=== PATIENT | female | born 1990 | race Two or more races ===

== ENCOUNTER 2020-03-08 01:03 | Inpatient (IN) | payer OTHER ==
[~2020-03-08] VITALS: Ht 149.9 cm; Wt 60.3 kg
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
--- NOTE | 2020-03-08 02:10 | NUR ---
[facility] LEGAL NURSE AT BEDSIDE DOING LEGAL BLOOD DRAW
--- NOTE | 2020-03-08 02:11 | NUR ---
[employer] AT BEDSIDE
[2020-03-08] MEDS ORDERED: MORPHINE SULFATE INJ 4 MG/ML DISP.SYRIN ONE (02:40)
--- NOTE | 2020-03-08 02:47 | NUR ---
move packet given to admitting.
--- NOTE | 2020-03-08 02:57 | NUR ---
MS. ADI MARIE,
[2020-03-08 02:58] LABS: BASOPHILS # (AUTO) 0.1 /CMM (0.0-0.2); BASOPHILS % (AUTO) 0.6 % (0.0-2.0); EOSINOPHILS % (AUTO) 0.3 % (0.0-6.0); HEMATOCRIT 39 % (33-45); HEMOGLOBIN 13.1 g/dL (11.5-14.8); LYMPHOCYTES # (AUTO) 1.5 /CMM (0.8-4.8); LYMPHOCYTES % (AUTO) 15.6 % (20.0-44.0); MEAN CORPUSCULAR HGB CONC 34 g/dl (31.0-36.0); MEAN CORPUSCULAR VOLUME 91 fL (82-100); MONOCYTES # (AUTO) 0.5 /CMM (0.1-1.30); NEUTROPHILS # (AUTO) 7.8 /CMM (1.8-8.9); NEUTROPHILS % (AUTO) 78.5 % (43.0-81.0); PLATELET COUNT (AUTO) 204 /CMM (150-450); RED BLOOD CELL COUNT(AUTO) 4.28 MIL/uL (4.0-5.2); WHITE BLOOD COUNT (AUTO) 9.9 K/uL (4.3-11.0)
[2020-03-08] MEDS ORDERED: MORPHINE SULFATE INJ 2 MG/ML DISP.SYRIN IV ONE (03:00)
[2020-03-08 03:08] LABS: CALCIUM, SERUM 8.5 mg/dL (8.5-10.1); CREATININE 0.8 mg/dL (0.6-1.3); POTASSIUM 3.6 mmol/L (3.5-5.1)
--- NOTE | 2020-03-08 03:30 | NUR ---
called [facility] for panel admission, dr. pavon paged. waiting for call back
--- NOTE | 2020-03-08 03:38 | NUR ---
called rn sup for bed
--- NOTE | 2020-03-08 03:45 | NUR ---
tech at bedside for splint.
[2020-03-08] MEDS ORDERED: ACETAMINOPHEN 325 MG TABLET PO PRN (04:00)
[2020-03-08] MEDS ORDERED: ONDANSETRON HCL/PF 4 MG/2 ML VIAL IVP PRN (04:00)
[2020-03-08] MEDS ORDERED: Z GUARD REMEDY 2 OZ OINT TP PRN (04:00)
[2020-03-08] MEDS ORDERED: MAGNESIUM HYDROXIDE 30 ML UDC PO PRN (04:00)
[2020-03-08] MEDS ORDERED: MAG HYDROX/AL HYDROX/SIMETH 30 ML UDC PO PRN (04:00)
--- NOTE | 2020-03-08 04:06 | NUR ---
REPORT GIVEN TO [facility]
--- NOTE | 2020-03-08 04:08 | NUR ---
Report given to Rolando chavez.
[2020-03-08 05:00] VITALS: BP 121/74
--- NOTE | 2020-03-08 05:05 | NUR ---
MS/RN OPENING NOTES RECEIVED PATIENT FROM ER. TRANSPORTED VIA GURNEY BY [facility]. PATIENT TRANSFERRED TO BED SAFELY. PATIENT IS ALERT AND ORIENTED X 4. BREATHING IS EVEN AND UNLABORED. NO SIGNS OF RESPIRATORY DISTRESS OR SOB NOTED. PATIENT TOLERATING ROOM AIR WELL. PATIENT V/S ARE WITHIN NORMAL LIMITS. SKIN IS INTACT. PATIENT HAS BELONGING WITH HER AT BEDSIDE. PATIENT HAS IV ACCESS ON LEFT HAND AND RIGHT AC INTACT. SAFETY MEASURES ARE IN PLACE, BED LOCKED AND PLACED IN THE LOW POSITION, CALL LIGHT WITH IN REACH. WILL CONTINUE TO MONITOR.
[2020-03-08 05:47] VITALS: BP 121/74
--- NOTE | 2020-03-08 06:50 | NUR ---
MS/RN CLOSING NOTES PATIENT SLEEPING IN BED EASY TO WAKE. PATIENT IS ALERT AND ORIENTED X 4. BREATHING IS EVEN AND UNLABORED. NO SIGNS OF RESPIRATORY DISTRESS OR SOB NOTED. PATIENT TOLERATING ROOM AIR WELL. PATIENT V/S ARE WNL. PATIENT HAS IV ACCESS ON LEFT HAND AND RIGHT AC #20G SL INTACT. ALL PATIENTS NEEDS HAVE BEEN MET DURING SHIFT. SAFETY MEASURES ARE IN PLACE, BED LOCKED AND PLACED IN THE LOW POSITION, CALL LIGHT WITH IN REACH. WILL ENDORSE CARE TO DAY SHIFT NURSE.
--- NOTE | 2020-03-08 07:30 | NUR ---
received pt. this am alert and oriented x4.skin warm and dry.vs stable.
[2020-03-08 08:00] VITALS: BP 116/68
[2020-03-08] MEDS: MORPHINE SULFATE INJ 2 MG/ML DISP.SYRIN IV PRN ×3 (09:02→20:26)
--- NOTE | 2020-03-08 10:59 | NUR ---
spoke with ortho Dr. Guerra regarding consult. will come to see pt today.
--- NOTE | 2020-03-08 15:00 | NUR ---
dr. reddy surgeon here and pt. to have surgery tomorrow.
[2020-03-08 16:00] VITALS: BP 114/71
[2020-03-08] MEDS: HYDROCODONE/APAP 5/325MG TABLET PO PRN (17:18)
--- NOTE | 2020-03-08 18:30 | NUR ---
consents signed.pre-op teaching done.med. x 3 for ankle pain.
--- NOTE | 2020-03-08 19:00 | NUR ---
RECEIVED IN BED ALERT AND ORIENTATED X4 AWARE OF SCHEDULED AM SURGERY IN THE MORNING STSTAES THE MD WAS IN ANS SPOKE TO HER SURGERY SCHEDULED FOR 10:30AM CONSENT IS SIGNED AND IN THE CHART RIGHT ANKLE IS WRAPPED IN BIAS WRAP TIP OF LARGE TOE EXPOSED WARM TO TOUCH AND BLANCHING PRESENT
[2020-03-08 20:00] VITALS: BP 113/72
[2020-03-09] MEDS: MORPHINE SULFATE INJ 2 MG/ML DISP.SYRIN IV PRN ×2 (00:26→05:07)
--- NOTE | 2020-03-09 07:15 | NUR ---
MS RN NOTES PATIENT IN BED ALERT ORIENTED X 4. NO ACUTE DISTRESS NOTED. NO SOB NOTED. BREATHING UNLABORED. IV ACCESS PATENT AND INTACT, NO REDNESS, NO SWELLING NOTED. HEAD OF BED ELEVATED. SAFETY MEASURES IN PLACE. CALL LIGHT WITHIN REACH. WILL CONTINUE TO MONITOR ACCORDINGLY.
[2020-03-09 07:33] LABS: BASOPHILS # (AUTO) 0.1 /CMM (0.0-0.2); BASOPHILS % (AUTO) 0.5 % (0.0-2.0); EOSINOPHILS % (AUTO) 0.5 % (0.0-6.0); HEMATOCRIT 40 % (33-45); HEMOGLOBIN 13.1 g/dL (11.5-14.8); LYMPHOCYTES # (AUTO) 1.7 /CMM (0.8-4.8); LYMPHOCYTES % (AUTO) 15.2 % (20.0-44.0); MEAN CORPUSCULAR HGB CONC 33 g/dl (31.0-36.0); MEAN CORPUSCULAR VOLUME 91 fL (82-100); MONOCYTES # (AUTO) 0.7 /CMM (0.1-1.30); MONOCYTES % (AUTO) 5.9 % (2.0-12.0); NEUTROPHILS # (AUTO) 8.6 /CMM (1.8-8.9); NEUTROPHILS % (AUTO) 77.9 % (43.0-81.0); PLATELET COUNT (AUTO) 207 /CMM (150-450); RED BLOOD CELL COUNT(AUTO) 4.38 MIL/uL (4.0-5.2); WHITE BLOOD COUNT (AUTO) 11.1 K/uL (4.3-11.0)
[2020-03-09 08:00] VITALS: BP 119/71
[2020-03-09 08:01] LABS: CALCIUM, SERUM 9.2 mg/dL (8.5-10.1); CREATININE 0.8 mg/dL (0.6-1.3); MAGNESIUM 1.9 mg/dL (1.8-2.4); PHOSPHORUS 3.1 mg/dL (2.5-4.9); POTASSIUM 3.9 mmol/L (3.5-5.1)
[2020-03-09] MEDS ORDERED: BACITRACIN 50000 UNITS/VIAL ONE (08:26)
[2020-03-09] MEDS ORDERED: BUPIVACAINE 0.5 % PF 150 MG/30 ML VIAL ONE (08:26)
[2020-03-09] MEDS ORDERED: ANESTHESIA TRAY IN PYXIS 1 EA TRAY MC ONE (08:26)
--- NOTE | 2020-03-09 08:30 | NUR ---
MS RN NOTES PATIENT TRANSPORTED TO OPERATING ROOM IN STABLE CONDITION.
[2020-03-09] MEDS ORDERED: FENTANYL PF 100MCG/2ML AMPUL ONE (08:54)
[2020-03-09] MEDS ORDERED: HYDROMORPHONE INJ 2 MG/ML DISP.SYRIN ONE (08:54)
[2020-03-09] MEDS ORDERED: MIDAZOLAM HCL 2 MG/2ML VIAL ONE (08:54)
[2020-03-09] MEDS ORDERED: VANCOMYCIN 1 GM VIAL ONE (10:09)
--- NOTE | 2020-03-09 11:30 | NUR ---
MS HORTON NOTES PATIENT CAME BACK FROM SURGERY IN STABLE CONDITION, ALERT ORIENTED X 4. NO ACUTE DISTRESS NOTED. RIGHT LOWER LEG SURGERY DRESSING CLEAN DRY AND INTACT, VITAL SIGNS STABLE BP 118/79 VT 89 RR 19 TEMP 98.6 O2 SATURATION 98%. DENIED PAIN AT THIS TIME. WILL CONTINUE TO MONITOR. Addendum: 03/09/20 at 1934 by JAMAAL HAYS RN ADDENDUM: REPORT GIVEN BY COURTNEY HORTON, NO NEW ORDERS MADE BY DR CÁRDENAS.
[2020-03-09 16:00] VITALS: BP 101/61
--- NOTE | 2020-03-09 16:20 | NUR ---
MS RN NOTES RECEIVED NEW ORDER FROM DR GERMAIN FOR REGULAR DIET, NOTED AND CARRIED OUT
--- NOTE | 2020-03-09 19:00 | NUR ---
MS RN NOTES PATIENT IN BED ALERT ORIENTED X 3. NO ACUTE DISTRESS NOTED. NO SOB NOTED. BREATHING UNLABORED. DENIED ANY PAIN. IV ACCESS PATENT AND INTACT, NO REDNESS, NO SWELLING NOTED. HEAD OF BED ELEVATED.VITAL SIGNS WITHIN NORMAL LIMIT THROUGH OUT THE SHIFT. RIGHT SURGERY DRESSING CLEAN DRY AND INTACT. NEEDS ATTENDED AND ANTICIPATED. SAFETY MEASURES IN PLACE. CALL LIGHT WITHIN REACH. WILL ENDORSE TO NIGHT NURSE FOR CONTINUITY OF CARE.
[2020-03-09 20:00] VITALS: BP 112/68
[2020-03-09] MEDS: HYDROCODONE/APAP 5/325MG TABLET PO PRN (20:05)
--- NOTE | 2020-03-09 20:19 | NUR ---
MS RN OPENING NOTE Patient awake in bed, A/O x4, on bedrest. PERRLA. No JVD. CRP <3seconds. Brachial and pedal pulses 2+. Patient denies, nausea, vomiting, diarrhea. Patient c/o pain level 8 in right ankle. Breath sounds even, clear, unlabored on room air. No signs of acute distress or SOB. Skin is warm, pink. dry, appropriate for ethnicity, intact. Surgical dressing noted on right ankle. Dressing clean, dry, intact. Abdomen round, soft, non-tender. BS active. Patient is continent. Bed in low position, wheels locked, side rails up x2, call light within reach.
[2020-03-10] MEDS: MORPHINE SULFATE INJ 2 MG/ML DISP.SYRIN IV PRN ×2 (00:37→05:39)
--- NOTE | 2020-03-10 07:28 | NUR ---
MS RN CLOSING NOTE Patient awake in bed, A/O x4, on bedrest. Patient denies, nausea, vomiting, diarrhea. Patient c/o pain level 8 in right ankle. Breath sounds even, clear, unlabored on room air. No signs of acute distress or SOB. Skin is warm, pink. dry, appropriate for ethnicity, intact. Surgical dressing noted on right ankle. Dressing clean, dry, intact. Abdomen round, soft, non-tender. Patient voi 2x clear yellow urine. Bed in low position, wheels locked, side rails up x2, call light within reach.
[2020-03-10 08:00] VITALS: BP 113/77
[2020-03-10] MEDS: HYDROCODONE/APAP 5/325MG TABLET PO PRN (09:42)
--- NOTE | 2020-03-10 12:34 | NUR ---
RN NOTE SPOKE WITH DR CÁRDENAS AND MD CLEARED THE PATIENT FOR DISCHARGE. PER MD FIRST DRESSING CHANGE TO BE DONE BY MD AT THE OFFICE. PRIMARY NURSE IS MADE AWARE.
[2020-03-10] MEDS ORDERED: IV D5/0.45 NACL W/20 MEQ KCL 1L IV SCH ×2 (13:00)
[2020-03-10] MEDS ORDERED: MORPHINE SULFATE INJ 4 MG/ML DISP.SYRIN IV PRN (13:00)
[2020-03-10] MEDS ORDERED: HYDROCODONE/APAP 5/325MG TABLET PO PRN (13:00)
--- NOTE | 2020-03-10 16:16 | NUR ---
MS RN NOTES PATIENT DISCHARGED HOME IN STABLE CONDITION. PROVIDED PATIENT WITH WALKER. PATIENT WAS SEEN BY PT AND CLEARED FOR DISCHARGE HOME. PATIENT WAS INSTRUCTED ON THE USE OF THE WALKER. MD AWARE OF ALL ABNORMAL LABS AND TESTS. DISCHARGE TEACHING PROVIDED TO PATIENT, VERBALIZED UNDERSTANDING. DISCHARGE PROTOCOL FOLLOWED. ALL BELONGINGS ACCOUNTED FOR, BELONGING LIST SIGNED. PROVIDED PATIENT WITH DR. CHRISTIANSON CONTACT INFO. PERIPHERAL IV REMOVED WITH MINIMAL BLEEDING, ESCORTED PATIENT TO CAR.
[2020-03-10] MEDS ORDERED: CEFAZOLIN 1 GM in IV D5W 50 ML IV SCH (17:00)
== END 2020-03-10 16:16 | disposition home or self-care (01) | DRG 313 ==
LOC: ER 01:05 → MED 04:19
PROVIDERS: ADMIT Internal Medicine; ATTEND Internal Medicine
PROC: 0QSJ04Z Reposition Right Fibula with Internal Fixation Device, Open Approach (ICD-10-PCS; principal; 2020-03-09)
PROC: 0QSG04Z Reposition Right Tibia with Internal Fixation Device, Open Approach (ICD-10-PCS; 2020-03-09)
DX: S82.841A Displaced bimalleolar fracture of right lower leg, initial encounter for closed fracture (principal); V89.2XXA Person injured in unspecified motor-vehicle accident, traffic, initial encounter; Y92.410 Unspecified street and highway as the place of occurrence of the external cause
CPT/HCPCS: 36415; 71045-TC; 73600-TC; 73610-TC; 80048-TC; 83735-TC; 84100-TC; 84703-TC; 85025-TC; 85730-TC; 87081-TC; 97112-TC; 97116-TC; 97530-TC; A6402; C1713; C9803; G0378; J0690; J1100; J1170; J1885; J2250; J2270; J2405; J2704; J3010; J3370; J3480; J3490; J7060